=== PATIENT | female | born 1995 | race Caucasian/White ===

== ENCOUNTER 2018-04-17 18:11 | Emergency (ER) | payer BC, OTHER ==
[2018-04-17] MEDS ORDERED: Ondansetron PF 4 MG/2 ML Vial ONE (18:19)
[2018-04-17 18:41] LABS: #Eosinphils 0.1 thou/uL (0.0-0.7); #Lymphocytes 1.4 thou/uL (1.20-3.40); #Monocytes 0.6 thou/uL (0.11-0.59); #Neutrophils 7.5 thou/uL (1.40-6.50); %Basophils 0.1 % (0.0-1.0); %Eosinophils 0.6 % (0.0-10.0); %Lymphocytes 14.3 % (21.0-51.0); %Monocytes 6.2 % (0.0-10.0); %Neutrophils 78.7 % (42.0-75.0); Hemoglobin 15.2 g/dL (12.0-16.0); Mean Corpuscular HGB CONC 35.1 g/dL (32.0-36.0); Mean Platelet Volume 9.2 fL (7.4-10.4); Platelet Count 133 thou/uL (130-400); RBC Distribution Width 11.8 % (11.5-14.5); Red Blood Cell (RBC) Count 4.62 mill/uL (4.20-5.40); White Blood Cell (WBC) Count 9.5 thou/uL (4.8-10.8)
[2018-04-17 19:00] LABS: ALT (SGPT) 12 U/L (8-55); AST (SGOT) 15 U/L (5-34); Albumin 4.5 g/dL (3.5-5.0); Alkaline Phosphatase 26 U/L (40-150); Anion Gap 15 mmol/L (10-20); BUN (Urea Nitrogen) 9 mg/dL (7.0-18.7); Bilirubin, Total 0.5 mg/dL (0.2-1.2); Calc. Creatinine Clearance 0 mL/min (70-130); Calcium 9.3 mg/dL (7.8-10.44); Carbon Dioxide 19 mmol/L (22-29); Chloride 104 mmol/L (98-107); Estimated GFR-MDRD Greater than 90; Globulin 3.3 g/dL (2.4-3.5); Glucose 82 mg/dL (70-105); Lipase 33 U/L (8-78); Potassium 3.1 mmol/L (3.5-5.1); Protein, Total 7.8 g/dL (6.0-8.3); Sodium 135 mmol/L (136-145)
[2018-04-17 19:09] LABS: BHCG - Serum POSITIVE (NEGATIVE); Pregs Control Bar Appear? YES (CONTROL BAR)
[2018-04-17 19:10] LABS: Pregs Control Background? CLEAR/WHITE (CLR/WHITE)
[2018-04-17] MEDS ORDERED: Acetaminophen 500 MG TAB ONE (19:37)
[2018-04-17] MEDS ORDERED: Potassium Chloride 20 MEQ TAB ONE (19:58)
[2018-04-17 20:11] LABS: Pregnancy Test - Urine (BHCG) POSITIVE (Negative); Pregu Control Background? CLEAR/WHITE (CLR/WHITE); Pregu Control Bar Appear? YES (CONTROL BAR); Specific Gravity 1.008 (1.002-1.036)
[2018-04-17 20:22] LABS: Bilirubin Negative (Negative); Blood, Urine Negative (Negative); Clarity CLEAR (Clear); Glucose, Urine (Dipstick) Negative (Negative); Leukocyte Negative (Negative); Nitrite Negative (Negative); Protein, Urine (Dipstick) Negative (Neg-Trace); Specific Gravity, Urine 1.007 (1.002-1.036); Urobilinogen 0.2 mg/dL (0.2-1.0)
--- NOTE | 2018-04-17 21:09 | ULT ---
ULTRASOUND AT LESS THAN FOURTEEN WEEKS INCLUDING TRANSABDOMINAL AND TRANSVAGINAL AND VASCUL AR DUPLEX WITH COLOR AND SPECTRAL DOPPLER IMAGING: FINDINGS: There is an intrauterine , with a crown-rump length of 3.0 cm, equal to 9 weeks' 6 days' ges tation. Gestational sac size approximates 4.4 cm, equivalent to 9 weeks' 6 days' gestation. h eart rate is 171 beats per minute. The right and left ovaries are within normal limits in size, shap e, and position. Vascular flow is documented bilaterally. There was some minimal retrochorionic flu id noted on the left side, evidence for minimal retrochorionic hemorrhage. IMPRESSION: 1. Single viable early intrauterine , at approximately 9 weeks 6 days, with an expected violeta e of confinement of 11/14/2018. 2. Small left-sided retrochorionic hemorrhage. 3. heart rate 171 beats per minute. 4. Unremarkable adnexa. 5. No other significant acute process. POS: MIKE
== END 2018-04-17 20:40 | disposition home or self-care (01) ==
LOC: ERS 18:11
DX: O99.281 Endocrine, nutritional and metabolic diseases complicating pregnancy, first trimester (principal); E87.6 Hypokalemia; O21.9 Vomiting of pregnancy, unspecified; Z3A.09 9 weeks gestation of pregnancy; O99.340 Other mental disorders complicating pregnancy, unspecified trimester; F41.9 Anxiety disorder, unspecified; F32.9 Major depressive disorder, single episode, unspecified
CPT/HCPCS: 76856; 80053; 81003; 81025; 83690; 83735; 84703; 85025; 96361; 96374; J2405